=== PATIENT | male | born 1965 | race Caucasian/White ===

== ENCOUNTER 2016-08-13 22:55 | Inpatient (IN) | payer OTHER, MEDICARE ==
[2016-08-13] MEDS ORDERED: SODIUM CHLORIDE 0.9% 1,000 ML IV ONE ×2 (23:30→23:35)
[2016-08-14] MEDS ORDERED: cefTRIAXone 1 GM in SODIUM CHLORIDE 0.9% MINIBAG 100 ML IV STA (00:35)
[2016-08-14] MEDS ORDERED: AZITHROMYCIN INJ 500 MG in SODIUM CHLORIDE 0.9% 250 ML IV STA (00:36)
[2016-08-14] MEDS ORDERED: cefTRIAXone 1 GM VIAL ONE (00:50)
[2016-08-14] MEDS ORDERED: SODIUM CHLORIDE 0.9% 1,000 ML IV ONE (02:10)
[2016-08-14] MEDS ORDERED: ONDANSETRON 4 MG/2 ML VIAL IVP PRN (02:10)
[2016-08-14] MEDS ORDERED: oxyCODONE 5 MG TABLET PO PRN (02:10)
[2016-08-14] MEDS ORDERED: PROCHLORPERAZINE 10 MG/2 ML VIAL IVP PRN (02:10)
[2016-08-14] MEDS: SODIUM CHLORIDE 0.9% 1,000 ML IV SCH (03:47)
[2016-08-14] MEDS: oxyCODONE 5 MG TABLET PO PRN ×2 (03:52→13:02)
[2016-08-14] MEDS: QUEtiapine 100 MG TABLET PO SCH ×2 (03:56→20:37)
[2016-08-14] MEDS: tiZANidine 4 MG TABLET PO PRN ×2 (03:56→20:37)
[2016-08-14] MEDS: PRAMIPEXOLE 0.25 MG TABLET PO SCH ×2 (03:56→20:36)
[2016-08-14] MEDS ORDERED: AMPHETAMINE PO SCH ×2 (06:00→09:00)
[2016-08-14] MEDS ORDERED: DEXTROAMPHETAMINE PO SCH ×2 (06:00→09:00)
[2016-08-14] MEDS: PANTOPRAZOLE 40 MG TABLET PO SCH (06:11)
[2016-08-14] MEDS: BUDESONIDE 0.5 MG/2 ML NEB INH SCH ×2 (07:30→19:25)
[2016-08-14] MEDS: oxyCODONE ER 10 MG TABLET PO SCH ×2 (08:35→20:36)
[2016-08-14] MEDS: CHOLECALCIFEROL 1,000 UNIT TABLET PO SCH (08:35)
[2016-08-14] MEDS: clonazePAM 0.5 MG TABLET PO SCH ×4 (08:36→20:37)
[2016-08-14] MEDS: ENOXAPARIN 40 MG/0.4 ML SYRINGE SUBQ SCH (08:37)
[2016-08-14] MEDS: POLYETHYLENE GLYCOL 3350 17 GM PACKET PO SCH (08:37)
[2016-08-14] MEDS ORDERED: clonazePAM 0.5 MG TABLET PO SCH (09:00)
[2016-08-14] MEDS ORDERED: QUEtiapine 100 MG TABLET PO SCH (09:00)
[2016-08-14] MEDS: SODIUM CHLORIDE FLUSH 0.9% 10 ML SYRINGE IVP SCH ×3 (09:30→22:35)
[2016-08-14] MEDS: FLUoxetine 10 MG CAPSULE PO SCH (09:38)
[2016-08-14] MEDS: LACTOB/S.THERMOPHL/BIFIDO CAPSULE PO SCH ×2 (10:16→17:26)
[2016-08-14] MEDS: AZITHROMYCIN INJ 500 MG in SODIUM CHLORIDE 0.9% 250 ML IV SCH (11:26)
[2016-08-14] MEDS: cefTRIAXone 2 GM in SODIUM CHLORIDE 0.9% MINIBAG 100 ML IV SCH (13:01)
[2016-08-14] MEDS: ACETAMINOPHEN 325 MG TABLET PO PRN (16:59)
[2016-08-14] MEDS: METHYLPHENIDATE 5 MG TABLET PO SCH ×2 (17:02→22:35)
[2016-08-14] MEDS: MORPHINE 2 MG/ML SYRINGE IVP PRN ×2 (18:10→20:38)
[2016-08-14] MEDS: FERROUS GLUCONATE 324 MG TABLET PO SCH (20:37)
[2016-08-15] MEDS: SODIUM CHLORIDE 0.9% 1,000 ML IV SCH ×4 (02:37→23:13)
[2016-08-15] MEDS: MORPHINE 2 MG/ML SYRINGE IVP PRN ×4 (05:08→16:29)
[2016-08-15] MEDS: ACETAMINOPHEN 325 MG TABLET PO PRN ×2 (05:47→18:04)
[2016-08-15] MEDS: PANTOPRAZOLE 40 MG TABLET PO SCH (06:38)
[2016-08-15] MEDS: METHYLPHENIDATE 5 MG TABLET PO SCH ×3 (06:38→21:39)
[2016-08-15] MEDS: SODIUM CHLORIDE FLUSH 0.9% 10 ML SYRINGE IVP SCH ×3 (06:38→21:48)
[2016-08-15] MEDS: BUDESONIDE 0.5 MG/2 ML NEB INH SCH ×2 (07:41→19:30)
[2016-08-15] MEDS: ENOXAPARIN 40 MG/0.4 ML SYRINGE SUBQ SCH (08:42)
[2016-08-15] MEDS: AZITHROMYCIN INJ 500 MG in SODIUM CHLORIDE 0.9% 250 ML IV SCH (08:42)
[2016-08-15] MEDS: cefTRIAXone 2 GM in SODIUM CHLORIDE 0.9% MINIBAG 100 ML IV SCH (08:42)
[2016-08-15] MEDS: FERROUS GLUCONATE 324 MG TABLET PO SCH (08:43)
[2016-08-15] MEDS: CHOLECALCIFEROL 1,000 UNIT TABLET PO SCH (08:43)
[2016-08-15] MEDS: POLYETHYLENE GLYCOL 3350 17 GM PACKET PO SCH (08:43)
[2016-08-15] MEDS: FLUoxetine 10 MG CAPSULE PO SCH (08:43)
[2016-08-15] MEDS: oxyCODONE ER 10 MG TABLET PO SCH ×2 (08:43→21:40)
[2016-08-15] MEDS: clonazePAM 0.5 MG TABLET PO SCH ×4 (08:43→21:39)
[2016-08-15] MEDS: LACTOB/S.THERMOPHL/BIFIDO CAPSULE PO SCH ×2 (09:03→16:30)
[2016-08-15] MEDS: IPRATROPIUM/ALBUTEROL 3 ML NEB INH PRN (17:30)
[2016-08-15] MEDS: oxyCODONE 5 MG TABLET PO PRN (19:11)
[2016-08-15] MEDS: SENNA 8.6 MG TABLET PO SCH (21:39)
[2016-08-15] MEDS: PRAMIPEXOLE 0.25 MG TABLET PO SCH (21:40)
[2016-08-15] MEDS: QUEtiapine 100 MG TABLET PO SCH (21:43)
[2016-08-16] MEDS: MORPHINE 2 MG/ML SYRINGE IVP PRN (00:48)
[2016-08-16] MEDS: ACETAMINOPHEN 325 MG TABLET PO PRN ×3 (00:48→17:14)
[2016-08-16] MEDS: SODIUM CHLORIDE FLUSH 0.9% 10 ML SYRINGE IVP PRN (00:49)
[2016-08-16] MEDS: oxyCODONE 5 MG TABLET PO PRN ×3 (02:17→16:43)
[2016-08-16] MEDS: SENNA 8.6 MG TABLET PO SCH ×3 (02:20→14:17)
[2016-08-16] MEDS: METHYLPHENIDATE 5 MG TABLET PO SCH ×3 (06:20→16:42)
[2016-08-16] MEDS: PANTOPRAZOLE 40 MG TABLET PO SCH (06:21)
[2016-08-16] MEDS: SODIUM CHLORIDE FLUSH 0.9% 10 ML SYRINGE IVP SCH ×4 (06:21→14:48)
[2016-08-16] MEDS: oxyCODONE ER 10 MG TABLET PO SCH ×2 (08:06→20:45)
[2016-08-16] MEDS: FLUoxetine 10 MG CAPSULE PO SCH (08:07)
[2016-08-16] MEDS: clonazePAM 0.5 MG TABLET PO SCH ×4 (08:08→20:46)
[2016-08-16] MEDS: LACTOB/S.THERMOPHL/BIFIDO CAPSULE PO SCH ×2 (08:09→16:43)
[2016-08-16] MEDS: FERROUS GLUCONATE 324 MG TABLET PO SCH (08:09)
[2016-08-16] MEDS: POLYETHYLENE GLYCOL 3350 17 GM PACKET PO SCH (09:02)
[2016-08-16] MEDS: DOCUSATE SODIUM 250 MG CAPSULE PO PRN (09:07)
[2016-08-16] MEDS: IPRATROPIUM/ALBUTEROL 3 ML NEB INH PRN (09:12)
[2016-08-16] MEDS: BUDESONIDE 0.5 MG/2 ML NEB INH SCH (09:12)
[2016-08-16] MEDS: CHOLECALCIFEROL 1,000 UNIT TABLET PO SCH (09:13)
[2016-08-16] MEDS: cefTRIAXone 2 GM in SODIUM CHLORIDE 0.9% MINIBAG 100 ML IV SCH (09:15)
[2016-08-16] MEDS: ENOXAPARIN 40 MG/0.4 ML SYRINGE SUBQ SCH (09:35)
[2016-08-16] MEDS: AZITHROMYCIN INJ 500 MG in SODIUM CHLORIDE 0.9% 250 ML IV SCH (10:15)
[2016-08-16] MEDS: AMPICILLIN/SULBACTAM 3 GM in SODIUM CHLORIDE 0.9% MINIBAG 100 ML IV SCH ×3 (14:01→23:51)
[2016-08-16] MEDS ORDERED: ALBUTEROL NEB 2.5 MG/3 ML INH PRN (19:55)
[2016-08-16] MEDS ORDERED: IPRATROPIUM/ALBUTEROL 3 ML NEB INH ONE (20:04)
[2016-08-16] MEDS: PRAMIPEXOLE 0.25 MG TABLET PO SCH ×2 (20:45→20:47)
[2016-08-16] MEDS: QUEtiapine 100 MG TABLET PO SCH (20:45)
[2016-08-17] MEDS: oxyCODONE 5 MG TABLET PO PRN ×4 (03:24→17:29)
[2016-08-17] MEDS: AMPICILLIN/SULBACTAM 3 GM in SODIUM CHLORIDE 0.9% MINIBAG 100 ML IV SCH ×3 (06:16→17:31)
[2016-08-17] MEDS: PANTOPRAZOLE 40 MG TABLET PO SCH (06:16)
[2016-08-17] MEDS: SODIUM CHLORIDE FLUSH 0.9% 10 ML SYRINGE IVP SCH ×3 (06:20→21:21)
[2016-08-17] MEDS: IPRATROPIUM/ALBUTEROL 3 ML NEB INH SCH ×4 (07:39→21:20)
[2016-08-17] MEDS: cefTRIAXone 2 GM in SODIUM CHLORIDE 0.9% MINIBAG 100 ML IV SCH (07:53)
[2016-08-17] MEDS: LACTOB/S.THERMOPHL/BIFIDO CAPSULE PO SCH ×2 (07:59→17:29)
[2016-08-17] MEDS: FERROUS GLUCONATE 324 MG TABLET PO SCH (07:59)
[2016-08-17] MEDS: ACETAMINOPHEN 325 MG TABLET PO PRN ×2 (08:38→14:18)
[2016-08-17] MEDS: AZITHROMYCIN INJ 500 MG in SODIUM CHLORIDE 0.9% 250 ML IV SCH (09:58)
[2016-08-17] MEDS: oxyCODONE ER 10 MG TABLET PO SCH ×2 (10:03→21:18)
[2016-08-17] MEDS: clonazePAM 0.5 MG TABLET PO SCH ×4 (10:03→21:18)
[2016-08-17] MEDS: DOCUSATE SODIUM 250 MG CAPSULE PO PRN (10:04)
[2016-08-17] MEDS: METHYLPHENIDATE 5 MG TABLET PO SCH ×3 (10:06→17:30)
[2016-08-17] MEDS: CHOLECALCIFEROL 5,000 UNIT CAPSULE PO SCH (10:09)
[2016-08-17] MEDS: FLUoxetine 10 MG CAPSULE PO SCH (10:09)
[2016-08-17] MEDS: POLYETHYLENE GLYCOL 3350 17 GM PACKET PO SCH (10:11)
[2016-08-17] MEDS: ENOXAPARIN 40 MG/0.4 ML SYRINGE SUBQ SCH (10:12)
[2016-08-17] MEDS: SODIUM CHLORIDE FLUSH 0.9% 10 ML SYRINGE IVP PRN (11:45)
[2016-08-17] MEDS: PRAMIPEXOLE 0.25 MG TABLET PO SCH ×2 (21:18→21:19)
[2016-08-17] MEDS: QUEtiapine 100 MG TABLET PO SCH (21:18)
[2016-08-18] MEDS: AMPICILLIN/SULBACTAM 3 GM in SODIUM CHLORIDE 0.9% MINIBAG 100 ML IV SCH ×5 (00:07→23:49)
[2016-08-18] MEDS: SODIUM CHLORIDE FLUSH 0.9% 10 ML SYRINGE IVP PRN ×2 (00:08→23:49)
[2016-08-18] MEDS: SODIUM CHLORIDE FLUSH 0.9% 10 ML SYRINGE IVP SCH ×3 (06:29→21:34)
[2016-08-18] MEDS: PANTOPRAZOLE 40 MG TABLET PO SCH (06:29)
[2016-08-18] MEDS: IPRATROPIUM/ALBUTEROL 3 ML NEB INH SCH ×4 (07:49→20:00)
[2016-08-18] MEDS: LACTOB/S.THERMOPHL/BIFIDO CAPSULE PO SCH ×2 (08:36→17:12)
[2016-08-18] MEDS: POLYETHYLENE GLYCOL 3350 17 GM PACKET PO SCH (08:36)
[2016-08-18] MEDS: FERROUS GLUCONATE 324 MG TABLET PO SCH (08:37)
[2016-08-18] MEDS: clonazePAM 0.5 MG TABLET PO SCH ×4 (08:37→21:34)
[2016-08-18] MEDS: METHYLPHENIDATE 5 MG TABLET PO SCH ×3 (08:37→17:13)
[2016-08-18] MEDS: FLUoxetine 10 MG CAPSULE PO SCH (08:37)
[2016-08-18] MEDS: oxyCODONE ER 10 MG TABLET PO SCH ×2 (08:37→21:34)
[2016-08-18] MEDS: AZITHROMYCIN INJ 500 MG in SODIUM CHLORIDE 0.9% 250 ML IV SCH (08:38)
[2016-08-18] MEDS: cefTRIAXone 2 GM in SODIUM CHLORIDE 0.9% MINIBAG 100 ML IV SCH (08:39)
[2016-08-18] MEDS: MORPHINE 2 MG/ML SYRINGE IVP PRN ×4 (08:40→23:59)
[2016-08-18] MEDS: ENOXAPARIN 40 MG/0.4 ML SYRINGE SUBQ SCH (08:40)
[2016-08-18] MEDS: CHOLECALCIFEROL 5,000 UNIT CAPSULE PO SCH (08:40)
[2016-08-18] MEDS: DOCUSATE SODIUM 250 MG CAPSULE PO PRN (08:50)
[2016-08-18] MEDS: oxyCODONE 5 MG TABLET PO PRN ×2 (15:36→23:59)
[2016-08-18] MEDS: ACETAMINOPHEN 325 MG TABLET PO PRN (17:12)
[2016-08-18] MEDS: QUEtiapine 100 MG TABLET PO SCH (21:33)
[2016-08-18] MEDS: SENNA 8.6 MG TABLET PO SCH (21:34)
[2016-08-18] MEDS: PRAMIPEXOLE 0.25 MG TABLET PO SCH ×2 (21:34)
[2016-08-19] MEDS: AMPICILLIN/SULBACTAM 3 GM in SODIUM CHLORIDE 0.9% MINIBAG 100 ML IV SCH (06:05)
[2016-08-19] MEDS: PANTOPRAZOLE 40 MG TABLET PO SCH (06:06)
[2016-08-19] MEDS: oxyCODONE 5 MG TABLET PO PRN ×2 (06:06→08:42)
[2016-08-19] MEDS: MORPHINE 2 MG/ML SYRINGE IVP PRN (06:06)
[2016-08-19] MEDS: SODIUM CHLORIDE FLUSH 0.9% 10 ML SYRINGE IVP SCH (06:06)
[2016-08-19] MEDS: AZITHROMYCIN INJ 500 MG in SODIUM CHLORIDE 0.9% 250 ML IV SCH (08:31)
[2016-08-19] MEDS: cefTRIAXone 2 GM in SODIUM CHLORIDE 0.9% MINIBAG 100 ML IV SCH (08:31)
[2016-08-19] MEDS: LACTOB/S.THERMOPHL/BIFIDO CAPSULE PO SCH (08:32)
[2016-08-19] MEDS: ENOXAPARIN 40 MG/0.4 ML SYRINGE SUBQ SCH (08:32)
[2016-08-19] MEDS: METHYLPHENIDATE 5 MG TABLET PO SCH (08:32)
[2016-08-19] MEDS: POLYETHYLENE GLYCOL 3350 17 GM PACKET PO SCH (08:32)
[2016-08-19] MEDS: DOCUSATE SODIUM 250 MG CAPSULE PO PRN (08:32)
[2016-08-19] MEDS: clonazePAM 0.5 MG TABLET PO SCH (08:33)
[2016-08-19] MEDS: SENNA 8.6 MG TABLET PO SCH (08:33)
[2016-08-19] MEDS: FLUoxetine 10 MG CAPSULE PO SCH (08:33)
[2016-08-19] MEDS: FERROUS GLUCONATE 324 MG TABLET PO SCH (08:33)
[2016-08-19] MEDS: oxyCODONE ER 10 MG TABLET PO SCH (08:33)
[2016-08-19] MEDS: CHOLECALCIFEROL 5,000 UNIT CAPSULE PO SCH (08:35)
== END 2016-08-19 11:31 | disposition home or self-care (01) | DRG 194 ==
DX: J18.1 Lobar pneumonia, unspecified organism (principal); E87.1 Hypo-osmolality and hyponatremia; Q78.0 Osteogenesis imperfecta; E86.1 Hypovolemia; D50.9 Iron deficiency anemia, unspecified; I95.9 Hypotension, unspecified; F32.9 Major depressive disorder, single episode, unspecified; F41.9 Anxiety disorder, unspecified; F43.10 Post-traumatic stress disorder, unspecified; F90.9 Attention-deficit hyperactivity disorder, unspecified type; G89.29 Other chronic pain; M41.9 Scoliosis, unspecified; Z79.891 Long term (current) use of opiate analgesic; Z79.899 Other long term (current) drug therapy; Z79.51 Long term (current) use of inhaled steroids; Z87.01 Personal history of pneumonia (recurrent)

== ENCOUNTER 2016-08-31 20:36 | Emergency (ER) | payer MEDICARE, OTHER ==
[2016-08-31] MEDS ORDERED: SODIUM CHLORIDE 0.9% 500 ML IV STA (21:43)
[2016-08-31] MEDS ORDERED: oxyCODONE 5 MG TABLET PO STA (22:56)
[2016-08-31] MEDS ORDERED: oxyCODONE 5 MG TABLET ONE (23:01)
== END 2016-08-31 23:11 | disposition home or self-care (01) ==
DX: M54.9 Dorsalgia, unspecified (principal); R53.1 Weakness
CPT/HCPCS: 36415; 71020; 80053; 83605; 83690; 85025; 99283; 99284; A9270

== ENCOUNTER 2016-12-14 12:54 | Outpatient (CLI) | payer OTHER, MEDICARE ==
--- NOTE | 2016-12-15 14:55 | DEXA Report ---
DEXA: 12/14/2016 CLINICAL INDICATION: Osteogenesis imperfecta. TECHNIQUE: Dual energy x-ray absorptiometry (DXA) was performed on a [employer] system. Regions measured are the AP spine, femoral neck, and, if needed, forearm. COMPARISON: None. In accordance with the International Society for Clinical Densitometry (ISCD) guidelines, data from previous exams may be reanalyzed using current recommendations and techniques. This is done to allow a more accurate basis for comparison with the current study. FINDINGS: The data for the lumbar spine is as follows: REGION BMD (g/cm/cm) T-SCORE Z-SCORE L1 0.823 -2.6 -2.8 L2 1.040 -1.3 -1.6 L3 0.901 -2.5 -2.7 L4 0.907 -2.4 -2.7 TOTAL 0.917 -2.2 -2.4 NOTE: All evaluable vertebrae are used for classification. The data for the hip is as follows: REGION BMD (g/cm/cm) T-SCORE Z-SCORE Neck 0.821 -1.6 -1.2 TOTAL 0.820 -1.5 -1.5 NOTE: The femoral neck or total proximal femur, whichever is lowest, is used for classification. IMPRESSION: THE WHO CLASSIFICATION BASED ON THE INTERNATIONAL REFERENCE STANDARD IS OSTEOPENIA. THE FRACTURE RISK IS INCREASED. RECOMMENDATION: Patients with diagnosis of osteoporosis or osteopenia should have regular bone mineral density assessment. For those eligible for Medicare, routine testing is allowed once every 2 years. Testing frequency can be increased for patients who have rapidly progressing disease or for those who are receiving medical therapy to restore bone mass. COMMENT: World Health Organization (WHO) definitions for osteoporosis and osteopenia: NORMAL BMD: T-score at -1.0 or higher, fracture risk is low. OSTEOPENIA BMD: T-score between -1.0 and -2.5, fracture risk is increased. OSTEOPOROSIS BMD: T-score at -2.5 or lower, fracture risk high. National Osteoporosis Foundation recommends: 1. Obtain adequate dietary calcium (at least 1200 mg per day) and vitamin D (400 -800 international units per day). 2. Participate, as appropriate, in regular weightbearing and muscle- strengthening exercise. 3. Avoid tobacco use and reduce alcohol and caffeine intake. 4. For more detailed information see the website at www.NOF.org. MTDD
== END 2016-12-14 12:55 | disposition home or self-care (01) ==
LOC: DI 12:54
PROVIDERS: ATTEND Internal Medicine
DX: M85.89 Other specified disorders of bone density and structure, multiple sites (principal)
CPT/HCPCS: 77080

== ENCOUNTER 2017-01-10 12:47 | Outpatient (CLI) | payer OTHER, MEDICARE ==
[2017-01-10] MEDS ORDERED: GADOBUTROL 10 MMOL/10 ML VIAL IVP ONE (13:31)
--- NOTE | 2017-01-10 15:08 | MRI Report ---
EXAM: MRI LUMBAR SPINE WITHOUT AND WITH CONTRAST EXAM DATE: 01/10/2017 01:38 PM. CLINICAL HISTORY: Low back pain. Lumbar radiculopathy. Prior lumbar spine surgery. Low back pain radi ates to the left leg suggestive of left lower extremity radiculopathy. COMPARISONS: None. TECHNIQUE: Multiplanar, multisequence T1-weighted and fluid-sensitive sequences of the lumbar spine f rom T12 to S1 before and after administration of intravenous contrast. IV contrast: Without and with 8 mL Gadavist. Other: None. FINDINGS: Spinal Cord: The conus terminates at L1. No signal abnormality in the visualized spinal cord. Alignment: Lumbar levoscoliosis, broad-based of about 14 degrees. Bone Marrow: Five [id number] lumbar vertebral bodies are assumed. No acute marrow edema. Disk Levels/Facets: T12-L1: Unremarkable. L1-L2: Unremarkable. L2-L3: Unremarkable. L3-L4: Unremarkable. L4-L5: Minimal central canal and foraminal stenosis from a combination of shallow broad-based bulge a nd mild to moderate posterior element hypertrophic degenerative changes. No focal nerve root compress ion or disk extrusion however. L5-S1: There are findings of previous left hemilaminectomy. Perioperative soft tissue enhancement in the left epidural space is present consistent with residual scar. Minimal posterior displacement of t he left S1 nerve root sleeve without evidence for nerve root compression. There is probably a shallow left posterior paracentral disk protrusion extending laterally into the left neural foramen, partial ly enhancing consistent with degenerative or postoperative changes. This is associated with moderatel y prominent left foraminal stenosis, the stenosis is also exacerbated by moderate facet arthropathy o n the left. The central canal is grossly patent. No foraminal stenosis on the right. Spinal Canal: No enhancing masses within the spinal canal. No epidural abscess. Musculature: No acute edema or significant asymmetry. Other: None. IMPRESSION: 1. There are chronic-appearing findings of left side L5-S1 hemilaminotomy. The region of the left lat eral recess shows postoperative distortion and enhancing epidural scar associated with mild posterior displacement of the left S1 nerve root sleeve. Moderately prominent-appearing left foraminal stenosi s at this level is present from a combination of facet arthropathy and left side intraforaminal disk protrusion with mild osteophytic spurring. Amorphous enhancement of the left intraforaminal disk prot rusion may be postoperative or degenerative. 2. No significant central canal or right foraminal stenosis at L5-S1. 3. Mild degenerative changes without significant stenosis at L4-L5. 4. Mild broad-based lumbar levoscoliosis. Comment: The following findings are so common in adults without low back pain that while we report th eir presence, they must be interpreted with caution and in the context of the clinical situation. (Re shkehar Cerda et al, Spine 2001) Prevalence of findings in patients without low back pain: Disk degeneration (any evidence): 92% Disk desiccation/T2 signal loss: 83% Disk height loss: 56% Disk bulge: 64% Disk protrusion: 32% Annular tear/high intensity zone: 38% [facility] Referring Provider Line: [phone] SITE ID: [id number]
== END 2017-01-10 12:48 | disposition home or self-care (01) ==
LOC: DI 12:47
PROVIDERS: ATTEND Physician Assistant Medical
DX: M54.16 Radiculopathy, lumbar region (principal); Q78.0 Osteogenesis imperfecta; M62.81 Muscle weakness (generalized)
CPT/HCPCS: 72158; A9585